=== PATIENT | female | born 1985 | race Caucasian/White ===

== ENCOUNTER → 2017-11-04 | Day surgery (SDC) | payer OTHER ==
[~2017-11-04] VITALS: Ht 165.1 cm; Wt 97.5 kg
--- NOTE | 2017-11-04 14:34 | Operative Report ---
Operative/Inv Procedure Report Surgery Date: 11/04/17 Name of Procedure: cystocele/enterocele repair with mesh, rectocele repair with Acell mesh and urethral sling, cystoscopy with methylene blue Pre-Operative Diagnosis: cystocele grade 3, enterocele grade 2 and rectocele grade 3, stress incontinence Post-Operative Diagnosis: same Estimated Blood Loss: scant (200cc) Surgeon/Scarfer Operator: Dagmar Leigh MD Anesthesia: laryngeal mask airway Implants: vaginal mesh Drains: 16fr tan Specimens: none Complications: none Condition: stable Operative Indication: symptomatic cystocele/enterocele and rectocele with stress incontinence Operative/Procedure Note Note: This an operative dictation on patient Alessia Fuchs. She is a 32-year-old female with pelvic organ prolapse recurrence after abdominal hysterectomy and prolapse repair several years ago. She presented to my office for consultation with very bothersome prolapse symptoms and stress incontinence. She was very eager to have this addressed surgically. She was not interested in any part pessary management. She was given the risks benefits and alternatives of a recurrence repair with vaginal mesh. All questions were answered. She was identified in the holding area and consented. Patient was taken to the operating room placed on the operating table in the supine position. Timeout was performed IV antibiotics were infused patient was placed in the dorsolithotomy position after LMA anesthesia was begun. She was shaved and the genitalia region area and she was then prepped and draped in the standard sterile fashion. A Tan catheter was placed in the bladder was emptied. The Tan was clamped and placed on the patient's abdomen. Buhler retractor was 60 days were then placed. 1% lidocaine with epinephrine was infiltrated into the anterior vaginal wall from the bladder neck to the vaginal apex. Incision was made along the same length of the vagina. The vaginal flaps are created taking care not to injure the bladder. The retropubic space was entered at the bladder neck and carried down to the retropubic space on the patient's left and right side. Care was taken not to injure the bladder once again. The sacrospinous process was found easily on both sides and the ligament emanating from this process was cleaned off. The thin Capio device was then used to place the varun like needles into the sacrospinous ligaments. This was done the patient's left and right side. This was followed by the bladder neck sutures with the same device at the arcus tendineus. The mesh was then placed using these 4 sutures. Stay sutures were placed at the bladder neck with 2-0 Vicryl as well as at the proximal portion of the vaginal apex as well. The mesh was then secured by tying down the sutures and was seen to be in good position. The cystocele was reduced to about grade 1-2. Methylene blue 10 mL was then given at this time to check for the patency of the ureter. The incision was closed using 2-0 Vicryl running locking suture every third suture. Prior to doing the closure Surgicel was placed into the retropubic area on the patient's left and right side for oozing. Cystoscopy was performed and the bladder was globally inspected. There was no mesh in the bladder and bilateral ureteral efflux was seen. The bladder was emptied and the Tan was placed back into the bladder. Attention was then turned to the urethral sling portion of the case. 1% lidocaine was infiltrated into the anterior vaginal wall beneath the urethra. Vaginal flaps are created taking care not to injure the urethra. Her anatomy was a little distorted or not typical. The Altis urethral mesh was placed using the trochars provided by the kit. The sling was seen to be sitting in a nice tension-free manner horizontal manner. However given the cystocele repair and her anatomy I opted to suture this the sling mesh in place with 3-0 Vicryl suture at the top and bottom of the mesh lateral to the urethra. Cystoscopy was performed again and no mesh or injury was seen in the bladder wall or urethra. The incision was closed with running 3-0 Vicryl suture. There is no mesh in the vaginal fornices. Attention was then turned to the posterior portion of the case. 1% lidocaine was infiltrated into the posterior wall and the posterior vaginal flaps are created taking care not to injure the rectum. Periodic rectal exams were performed to ensure this. Once the vaginal flaps are created and the rectocele was completely dissected free 2-0 Vicryl sutures were used in interrupted fashion to bring the defect of the fascia together. These were not sutured down until the a cell mesh was put into place. This had been soaking for 20 minutes by this time. It was placed in a varun-shaped manner between the sutures and suture proximally and distally. The 2-0 Vicryl sutures that you were placed to bring the defect of the fascia together were now tied down from the proximal to the distal portion sequentially. It was seen to nicely reduced this rectocele. No rectal injury occurred. There was copiously irrigated with bacitracin irrigation. The vaginal flaps are closed using interrupted 2-0 Vicryl sutures. A cystoscopy was performed again and the bladder was globally inspected. Again there was no signs of injury injury in their anatomy was within normal limits. Ureteral efflux was seen from both orifices again in a brisk manner. Tan catheter was placed again and 10 mL of water was placed into the balloon. This Tan was attached to a Tan leg bag. Sponge and needle count were correct at the end of the case. Patient tolerated the procedure well. She was transferred to the recovery room in stable condition. Findings: No mesh in the bladder, urethra or vaginal fornices. Excellent ureteral efflux from both ureteral orifices. Discharge Disposition: PACU
== END ==
LOC: STS 00:54
DX: N39.3 Stress incontinence (female) (male) (principal); N81.10 Cystocele, unspecified; N81.6 Rectocele; N81.5 Vaginal enterocele; R39.198 Other difficulties with micturition; N94.10 Unspecified dyspareunia
CPT/HCPCS: C1771; C1781; J0131; J0690; J2250